=== PATIENT | male | born 1945 | race Caucasian/White ===

== ENCOUNTER 2021-01-10 02:27 | Emergency (ER) | payer OTHER ==
[~2021-01-10] VITALS: Ht 175.3 cm; Wt 77.1 kg
[2021-01-10] MEDS ORDERED: SODIUM CHLORIDE 0.9% 1000ML 1,000 ML IV STA (02:58)
[2021-01-10] MEDS ORDERED: ACETAMINOPHEN 325 MG TAB PO ONE (03:00)
[2021-01-10] MEDS ORDERED: HYDRALAZINE HCL 20 MG/ML VIAL IV ONE (03:00)
[2021-01-10] MEDS ORDERED: KETOROLAC TROMETHAMINE 30 MG/ML VIAL IV ONE (03:00)
[2021-01-10] MEDS ORDERED: ONDANSETRON HCL INJ 2MG/ML 2ML 2 MG/ML VIAL IV ONE (03:00)
[2021-01-10] MEDS ORDERED: FAMOTIDINE 20 MG/2 ML VIAL IV ONE ×2 (03:00→03:30)
[2021-01-10] MEDS ORDERED: ONDANSETRON ODT4 MG PO (03:16)
[2021-01-10] MEDS ORDERED: MAALOX MAXIMUM355 ML PO (03:16)
[2021-01-10] MEDS ORDERED: FAMOTIDINE20 MG PO (03:16)
[2021-01-10] MEDS ORDERED: ONDANSETRON HCL INJ 2MG/ML 2ML 2 MG/ML VIAL ONE (03:28)
[2021-01-10] MEDS ORDERED: SODIUM CHLORIDE 0.9% 1000ML 1,000 ML ONE (03:29)
[2021-01-10] MEDS ORDERED: KETOROLAC TROMETHAMINE 30 MG/ML VIAL ONE (03:29)
[2021-01-10] MEDS ORDERED: HYDRALAZINE HCL 20 MG/ML VIAL ONE (03:29)
[2021-01-10] MEDS ORDERED: ACETAMINOPHEN 325 MG TAB ONE (03:29)
[2021-01-10 04:16] VITALS: BP 170/84
== END 2021-01-10 04:08 | disposition home or self-care (01) ==
LOC: FSED 02:33
DX: R11.2 Nausea with vomiting, unspecified (principal); A05.9 Bacterial foodborne intoxication, unspecified; I16.0 Hypertensive urgency; I10 Essential (primary) hypertension; E11.9 Type 2 diabetes mellitus without complications; R94.31 Abnormal electrocardiogram [ECG] [EKG]
CPT/HCPCS: 80053; 82553; 84484; 85025; 93005; 96374; 96375; 96376; 99283; J0360; J1885; J2405; J7030